=== PATIENT | female | born 1970 ===

== ENCOUNTER 2017-02-03 14:28 | Emergency (ER) | payer SELFPAY ==
[~2017-02-03] VITALS: Ht 172.7 cm; Wt 79.5 kg
[2017-02-03 14:31] VITALS: BP 121/75; PULSE 71; RESP 16; TEMP 97.8; O2SAT 98
== END 2017-02-03 17:40 | disposition left against medical advice (07) ==
LOC: NETRI 14:28
DX: Z03.89 Encounter for observation for other suspected diseases and conditions ruled out (principal)
CPT/HCPCS: 99281